=== PATIENT | female | born 1940 | race African-American/Black ===

== ENCOUNTER 2018-08-10 15:53 | Emergency (ER) | payer MEDICARE, OTHER ==
[~2018-08-10 15:53] MED LIST: ISOVUE-370 76%-LOCM 1 ML ONE
[2018-08-10 16:55] LABS: #Basophils 0.1 thou/uL (0.0-0.2); #Eosinphils 0.1 thou/uL (0.0-0.7); #Lymphocytes 2.2 thou/uL (1.20-3.40); #Monocytes 0.6 thou/uL (0.11-0.59); #Neutrophils 5.7 thou/uL (1.40-6.50); %Basophils 0.9 % (0.0-1.0); %Eosinophils 0.6 % (0.0-10.0); %Monocytes 7.3 % (0.0-10.0); %Neutrophils 66.2 % (42.0-75.0); Hemoglobin 11.8 g/dL (12.0-16.0); Mean Corpuscular HGB CONC 32.7 g/dL (32.0-36.0); Mean Corpuscular Hemoglobin 29.1 pg (27.0-31.0); Mean Corpuscular Volume 89.2 fL (78.0-98.0); Mean Platelet Volume 8.6 fL (7.4-10.4); Platelet Count 268 thou/uL (130-400); RBC Distribution Width 12.7 % (11.5-14.5); Red Blood Cell (RBC) Count 4.07 mill/uL (4.20-5.40); White Blood Cell (WBC) Count 8.6 thou/uL (4.8-10.8)
--- NOTE | 2018-08-10 17:07 | RAD ---
AP VIEW CHEST: 08/10/2018 HISTORY: Syncope. Weakness. Dizziness. FINDINGS: The lungs are well aerated. No evidence of active intrathoracic disease is seen. No evidence of eff usions, pneumonia, or pneumothorax is seen. IMPRESSION: Unremarkable anterior-posterior view chest. POS: [facility]
[2018-08-10 17:18] LABS: ALT (SGPT) 13 U/L (8-55); AST (SGOT) 19 U/L (5-34); Albumin 4.6 g/dL (3.4-4.8); Alkaline Phosphatase 66 U/L (40-150); Anion Gap 17 mmol/L (10-20); BUN (Urea Nitrogen) 24 mg/dL (9.8-20.1); Bilirubin, Total 0.4 mg/dL (0.2-1.2); CK (CPK) 261 U/L (29-168); Calc. Creatinine Clearance 0 mL/min (70-130); Calcium 10.7 mg/dL (7.8-10.44); Carbon Dioxide 21 mmol/L (23-31); Chloride 102 mmol/L (98-107); Estimated GFR-MDRD 62; Globulin 3.6 g/dL (2.4-3.5); Glucose 148 mg/dL (83-110); Lipase 51 U/L (8-78); Magnesium 1.4 mg/dL (1.6-2.6); Potassium 4.4 mmol/L (3.5-5.1); Protein, Total 8.2 g/dL (6.0-8.3); Sodium 136 mmol/L (136-145)
[2018-08-10 17:34] LABS: Bilirubin Negative (Negative); Blood, Urine Negative (Negative); Clarity CLEAR (Clear); Glucose, Urine (Dipstick) Negative (Negative); Leukocyte Negative (Negative); Nitrite Negative (Negative); Protein, Urine (Dipstick) Trace mg/dL (Neg-Trace); Specific Gravity, Urine 1.004 (1.002-1.036); Urobilinogen 0.2 mg/dL (0.2-1.0); pH, Urine 7.5 (5.0-9.0)
--- NOTE | 2018-08-10 18:21 | CT ---
CONTRAST ENHANCED CTA CHEST: HISTORY: Severe weakness. Hypertension. TECHNIQUE: A contrast enhanced CTA of the chest is performed, and 2D and 3D reconstructed images are performed o n an independent 3D work station. FINDINGS: Coronary artery calcifications are seen. The aorta, in the ascending portion, demonstrates some diffuse dilatation, measuring up to 4 cm in th e ascending aorta. The aortic arch and descending aspects are unremarkable. Calcification is seen i n the descending thoracic aorta. No definite evidence of filling defect seen in the pulmonary arteries to suggest pulmonary emboli. No evidence of mediastinal pathology is seen. A large amount of stool is seen in the colon, compatible with severe constipation. IMPRESSION: Unremarkable computed tomography angiography chest. POS: [facility]
== END 2018-08-10 19:04 | disposition home or self-care (01) ==
LOC: ERS 15:53
DX: I71.2 Thoracic aortic aneurysm, without rupture (principal); R53.1 Weakness; T46.5X5A Adverse effect of other antihypertensive drugs, initial encounter; E86.0 Dehydration; I25.10 Atherosclerotic heart disease of native coronary artery without angina pectoris; E11.9 Type 2 diabetes mellitus without complications; E78.5 Hyperlipidemia, unspecified; I11.0 Hypertensive heart disease with heart failure; I50.9 Heart failure, unspecified; J44.9 Chronic obstructive pulmonary disease, unspecified; Z86.73 Personal history of transient ischemic attack (TIA), and cerebral infarction without residual deficits; Z79.82 Long term (current) use of aspirin; Z79.899 Other long term (current) drug therapy; Z79.84 Long term (current) use of oral hypoglycemic drugs
CPT/HCPCS: 36415; 71045; 71275; 80053; 81003; 82550; 83605; 83690; 83735; 83880; 84484; 85025; 85379; 87040; 87086; 87804; 93005; 96360; 96361; Q9966

== ENCOUNTER 2018-08-21 13:04 | Outpatient (CLI) | payer MEDICARE, OTHER ==
--- NOTE | 2018-08-21 14:44 | BD ---
DEXA BONE DENSITY STUDY: HISTORY: Asymptomatic menopausal state. FINDINGS: Lumbar Spine: BMD (g/cm2) L1 1.155 T-Score: +1.5 L2 1.274 T-Score: +2.2 L3 1.389 T-Score: +2.8 L4 1.342 T-Score: +2.6 L1-L4 1.300 T-Score: 2.4 Within normal limits with no increased risk for fracture. Femoral Neck: 0.944 T-Score: +0.9 Total Femur: 1.162 T-Score: +1.8 Within normal limits with no increased risk for fracture. FRAX score not given because all T-scores are at or above -1.0. POS: [facility]
== END 2018-08-21 13:05 | disposition home or self-care (01) ==
LOC: BICMAMMO 13:04
PROVIDERS: ATTEND Family Medicine
DX: Z13.820 Encounter for screening for osteoporosis (principal); Z78.0 Asymptomatic menopausal state
CPT/HCPCS: 77080

== ENCOUNTER 2020-01-12 10:46 | Emergency (ER) | payer MEDICARE, OTHER ==
--- NOTE | 2020-01-12 11:10 | RAD ---
Portable chest: HISTORY: Dyspnea COMPARISON: 08/10/2018 FINDINGS: Lung bender are clear. Heart and mediastinum appear unremarkable. Vascularity is normal. Visualized osseous structures unremarkable. IMPRESSION: No acute finding
[2020-01-12 12:01] LABS: #Monocytes 0.5 thou/uL (0.11-0.59); #Neutrophils 5.1 thou/uL (1.40-6.50); %Basophils 0.3 % (0.0-1.0); %Eosinophils 0.6 % (0.0-10.0); %Lymphocytes 26.1 % (21.0-51.0); %Monocytes 6.7 % (0.0-10.0); %Neutrophils 66.3 % (42.0-75.0); Hemoglobin 11.7 g/dL (12.0-16.0); Mean Corpuscular HGB CONC 33.1 g/dL (32.0-36.0); Mean Corpuscular Hemoglobin 30.4 pg (27.0-31.0); Mean Corpuscular Volume 92.1 fL (78.0-98.0); Mean Platelet Volume 8.3 fL (7.4-10.4); Platelet Count 272 thou/uL (130-400); RBC Distribution Width 12.1 % (11.5-14.5); Red Blood Cell (RBC) Count 3.83 mill/uL (4.20-5.40); White Blood Cell (WBC) Count 7.6 thou/uL (4.8-10.8)
[2020-01-12 12:22] LABS: ALT (SGPT) 19 U/L (8-55); AST (SGOT) 22 U/L (5-34); Albumin 4.4 g/dL (3.4-4.8); Alkaline Phosphatase 71 U/L (40-110); Anion Gap 13 mmol/L (10-20); BUN (Urea Nitrogen) 32 mg/dL (9.8-20.1); Bilirubin, Total 0.4 mg/dL (0.2-1.2); Calc. Creatinine Clearance 0 mL/min (70-130); Calcium 9.9 mg/dL (7.8-10.44); Carbon Dioxide 26 mmol/L (23-31); Chloride 101 mmol/L (98-107); Estimated GFR-MDRD 46; Globulin 3.1 g/dL (2.4-3.5); Glucose 160 mg/dL (83-110); Potassium 4.4 mmol/L (3.5-5.1); Protein, Total 7.5 g/dL (6.0-8.3); Sodium 136 mmol/L (136-145)
[2020-01-12 13:07] LABS: Bacteria/HPF 4+ HPF (None Seen); Bilirubin Negative (Negative); Blood, Urine Negative (Negative); Clarity Clear (Clear); Glucose, Urine (Dipstick) Normal (Negative); Ketone, Urine Negative (Negative); Leukocyte 25 Leu/uL (Negative); Nitrite Negative (Negative); Protein, Urine (Dipstick) 20 mg/dL (Neg-Trace); RBC/HPF 0-3 HPF (0-3); Specific Gravity, Urine 1.013 (1.002-1.036); Squamous Epithelial 0-3 HPF (0-3); Urobilinogen Normal mg/dL (Less than 2); WBC/HPF 0-3 HPF (0-3); pH, Urine 6.5 (5.0-9.0)
== END 2020-01-12 14:00 | disposition home or self-care (01) ==
LOC: ERS 10:46
DX: E86.0 Dehydration (principal); R55 Syncope and collapse; N39.0 Urinary tract infection, site not specified; E11.9 Type 2 diabetes mellitus without complications; I10 Essential (primary) hypertension; J44.9 Chronic obstructive pulmonary disease, unspecified; E78.00 Pure hypercholesterolemia, unspecified; Z86.73 Personal history of transient ischemic attack (TIA), and cerebral infarction without residual deficits; Z79.899 Other long term (current) drug therapy; Z79.82 Long term (current) use of aspirin; Z79.84 Long term (current) use of oral hypoglycemic drugs
CPT/HCPCS: 36415; 36416; 71045; 80053; 81003; 81015; 84484; 85025; 87086; 93005; 96360; 96361

== ENCOUNTER 2020-10-04 11:08 | Observation (INO) | payer MEDICARE, OTHER ==
[2020-10-04 14:43] LABS: ALT (SGPT) 40 U/L (8-55); AST (SGOT) 35 U/L (5-34); Albumin 4.8 g/dL (3.4-4.8); Alkaline Phosphatase 81 U/L (40-110); Anion Gap 14 mmol/L (10-20); BUN (Urea Nitrogen) 31 mg/dL (9.8-20.1); Bilirubin, Total 0.5 mg/dL (0.2-1.2); Calc. Creatinine Clearance 0 mL/min (70-130); Calcium 11.5 mg/dL (7.8-10.44); Carbon Dioxide 29 mmol/L (23-31); Chloride 99 mmol/L (98-107); Globulin 4.3 g/dL (2.4-3.5); Glucose 109 mg/dL (83-110); Potassium 4.4 mmol/L (3.5-5.1); Protein, Total 9.1 g/dL (5.8-8.1); Sodium 138 mmol/L (136-145); Troponin I 0.035 ng/mL (< 0.028)
[2020-10-04 14:50] LABS: Bacteria/HPF None Seen HPF (None Seen); Bilirubin Negative (Negative); Blood, Urine Negative (Negative); Clarity Clear (Clear); Glucose, Urine (Dipstick) Normal (Negative); Ketone, Urine Negative (Negative); Leukocyte Negative Leu/uL (Negative); Nitrite Negative (Negative); Protein, Urine (Dipstick) 10 mg/dL (Neg-Trace); RBC/HPF 0-3 HPF (0-3); Specific Gravity, Urine 1.009 (1.002-1.036); Squamous Epithelial 0-3 HPF (0-3); Urobilinogen Normal mg/dL (Less than 2); WBC/HPF 0-3 HPF (0-3); pH, Urine 7.5 (5.0-9.0)
[2020-10-04 15:11] LABS: #Lymphocytes 2.2 thou/uL (1.20-3.40); #Monocytes 0.5 thou/uL (0.11-0.59); #Neutrophils 4.9 thou/uL (1.40-6.50); %Basophils 0.4 % (0.0-1.0); %Eosinophils 0.1 % (0.0-10.0); %Lymphocytes 28.7 % (21.0-51.0); %Monocytes 6.2 % (0.0-10.0); %Neutrophils 64.6 % (42.0-75.0); Hemoglobin 13.2 g/dL (12.0-16.0); Mean Corpuscular HGB CONC 33.2 g/dL (32.0-36.0); Mean Corpuscular Hemoglobin 30.1 pg (27.0-31.0); Mean Corpuscular Volume 90.5 fL (78.0-98.0); Mean Platelet Volume 8.8 fL (7.4-10.4); Platelet Count 269 thou/uL (130-400); RBC Distribution Width 12.2 % (11.5-14.5); Red Blood Cell (RBC) Count 4.41 mill/uL (4.20-5.40); White Blood Cell (WBC) Count 7.6 thou/uL (4.8-10.8)
[2020-10-04] MEDS ORDERED: Aspirin Chewable 81 MG TAB ONE (15:48)
[2020-10-04] MEDS ORDERED: Ondansetron PF 4 MG/2 ML Vial IVP PRN (15:51)
[2020-10-04] MEDS ORDERED: Acetaminophen 325 MG TAB PO PRN (15:51)
[2020-10-04] MEDS ORDERED: Acetaminophen 650 MG Suppository PR PRN (15:51)
[2020-10-04] MEDS ORDERED: Ondansetron ODT 4 MG TAB PO PRN (15:51)
[2020-10-04] MEDS ORDERED: Dextrose 50% Abboject 50 ML SYRINGE SLOW IVP PRN (15:54)
[2020-10-04] MEDS ORDERED: Insulin Regular 300 UNITS/3 ML VIAL SC PRN (15:54)
[2020-10-04] MEDS ORDERED: Dextrose 5% in Water 1,000 ML IV PRN (15:54)
[2020-10-04 17:28] VITALS: BMI 29.9
[2020-10-04] MEDS: Sodium Chloride 0.9% 1,000 ML IV SCH (18:05)
[2020-10-04 18:22] LABS: Troponin I 0.032 ng/mL (< 0.028)
[2020-10-05] MEDS ORDERED: Calcium Carbonate 500 MG ChewTAB PO PRN (04:35)
[2020-10-05 05:26] LABS: #Eosinphils 0.1 thou/uL (0.0-0.7); #Lymphocytes 2.9 thou/uL (1.20-3.40); #Monocytes 0.5 thou/uL (0.11-0.59); #Neutrophils 3.4 thou/uL (1.40-6.50); %Basophils 0.3 % (0.0-1.0); %Eosinophils 1.1 % (0.0-10.0); %Lymphocytes 42.1 % (21.0-51.0); %Monocytes 7.4 % (0.0-10.0); %Neutrophils 49.1 % (42.0-75.0); Hemoglobin 11.1 g/dL (12.0-16.0); Mean Corpuscular HGB CONC 31.7 g/dL (32.0-36.0); Mean Corpuscular Hemoglobin 28.9 pg (27.0-31.0); Mean Corpuscular Volume 91.2 fL (78.0-98.0); Mean Platelet Volume 8.7 fL (7.4-10.4); Platelet Count 239 thou/uL (130-400); RBC Distribution Width 12.3 % (11.5-14.5); Red Blood Cell (RBC) Count 3.85 mill/uL (4.20-5.40); White Blood Cell (WBC) Count 6.9 thou/uL (4.8-10.8)
[2020-10-05 05:43] LABS: Anion Gap 13 mmol/L (10-20); BUN (Urea Nitrogen) 26 mg/dL (9.8-20.1); Calc. Creatinine Clearance 58 mL/min (70-130); Calcium 9.6 mg/dL (7.8-10.44); Carbon Dioxide 26 mmol/L (23-31); Chloride 104 mmol/L (98-107); Glucose 107 mg/dL (83-110); Potassium 4.2 mmol/L (3.5-5.1); Sodium 139 mmol/L (136-145)
[2020-10-05 10:25] LABS: SARS-CoV-2 PCR NAA for Saliva Not Detected (NotDetected)
[2020-10-05] MEDS: Sodium Chloride 0.9% 1,000 ML IV SCH (12:55)
[2020-10-05 16:09] VITALS: BP 150/69; TEMP 97.1
== END 2020-10-05 19:00 | disposition home or self-care (01) ==
LOC: ERS 11:08 → 2SW 16:05
PROVIDERS: ADMIT Internal Medicine; ATTEND Internal Medicine
DX: R55 Syncope and collapse (principal); R77.8 Other specified abnormalities of plasma proteins; I11.0 Hypertensive heart disease with heart failure; I50.9 Heart failure, unspecified; I25.10 Atherosclerotic heart disease of native coronary artery without angina pectoris; E11.9 Type 2 diabetes mellitus without complications; Z79.4 Long term (current) use of insulin; Z79.82 Long term (current) use of aspirin; Z79.899 Other long term (current) drug therapy; Z86.73 Personal history of transient ischemic attack (TIA), and cerebral infarction without residual deficits; Z88.2 Allergy status to sulfonamides; Z20.822 Contact with and (suspected) exposure to COVID-19
CPT/HCPCS: 71045; 80048; 81001; 82962 ×2; 83735; 84484 ×2; 85025; 93306; 99285; G0378 ×3; U0003; U0005; 36415; 36416; 80053; 84443; 87635

== ENCOUNTER 2020-11-22 10:21 | Outpatient (CLI) | payer MEDICARE, OTHER | END 2020-11-22 10:22 | disposition home or self-care (01) | LOC: NM 10:21 | PROVIDERS: ATTEND Internal Medicine Nephrology | DX: E21.0 Primary hyperparathyroidism (principal) | CPT/HCPCS: 78072; A9500 ==

== ENCOUNTER 2021-04-28 18:27 | Observation (INO) | payer MEDICARE, OTHER ==
[2021-04-28] MEDS ORDERED: Nitroglycerin 2% Ointment 1 INCH/1 GM Packet ONE (20:10)
[2021-04-28 20:22] LABS: #Eosinphils 0.1 thou/uL (0.0-0.7); #Lymphocytes 2.2 thou/uL (1.20-3.40); #Monocytes 0.3 thou/uL (0.11-0.59); #Neutrophils 4.5 thou/uL (1.40-6.50); %Basophils 0.5 % (0.0-1.0); %Eosinophils 1.5 % (0.0-10.0); %Lymphocytes 30.8 % (21.0-51.0); %Monocytes 4.6 % (0.0-10.0); %Neutrophils 62.5 % (42.0-75.0); Hemoglobin 11.8 g/dL (12.0-16.0); Mean Corpuscular HGB CONC 32.8 g/dL (32.0-36.0); Mean Corpuscular Hemoglobin 29.9 pg (27.0-31.0); Mean Corpuscular Volume 91.3 fL (78.0-98.0); Mean Platelet Volume 9.2 fL (7.4-10.4); Platelet Count 223 thou/uL (130-400); RBC Distribution Width 11.8 % (11.5-14.5); Red Blood Cell (RBC) Count 3.95 mill/uL (4.20-5.40); White Blood Cell (WBC) Count 7.1 thou/uL (4.8-10.8)
[2021-04-28 20:44] LABS: ALT (SGPT) 28 U/L (8-55); AST (SGOT) 27 U/L (5-34); Alkaline Phosphatase 79 U/L (40-110); Anion Gap 12 mmol/L (10-20); BUN (Urea Nitrogen) 20 mg/dL (9.8-20.1); Bilirubin, Total 0.3 mg/dL (0.2-1.2); Calc. Creatinine Clearance 0 mL/min (70-130); Calcium 9.5 mg/dL (7.8-10.44); Carbon Dioxide 27 mmol/L (23-31); Chloride 103 mmol/L (98-107); Globulin 3.4 g/dL (2.4-3.5); Glucose 206 mg/dL (83-110); Potassium 4.3 mmol/L (3.5-5.1); Protein, Total 7.4 g/dL (5.8-8.1); Sodium 138 mmol/L (136-145)
[2021-04-28 20:46] LABS: Bacteria/HPF None Seen HPF (None Seen); Bilirubin Negative (Negative); Blood, Urine Negative (Negative); Clarity Clear (Clear); Glucose, Urine (Dipstick) Normal (Negative); Ketone, Urine Negative (Negative); Leukocyte Negative Leu/uL (Negative); Nitrite Negative (Negative); Protein, Urine (Dipstick) 70 mg/dL (Neg-Trace); RBC/HPF 0-3 HPF (0-3); Specific Gravity, Urine 1.009 (1.002-1.036); Squamous Epithelial 0-3 HPF (0-3); Urobilinogen Normal mg/dL (Less than 2); WBC/HPF 0-3 HPF (0-3); pH, Urine 6.5 (5.0-9.0)
[2021-04-28 23:45] LABS: Troponin I 0.013 ng/mL (< 0.028)
[2021-04-29] MEDS ORDERED: Ondansetron PF 4 MG/2 ML Vial IVP PRN ×2 (00:04→01:22)
[2021-04-29] MEDS ORDERED: Ondansetron ODT 4 MG TAB PO PRN (00:04)
[2021-04-29] MEDS ORDERED: Acetaminophen 325 MG TAB PO PRN ×2 (00:05→01:22)
[2021-04-29 00:27] VITALS: BMI 29.4
[2021-04-29] MEDS ORDERED: hydrALAZINE 20 MG/ML VIAL SLOW IVP SCH (00:45)
[2021-04-29] MEDS ORDERED: Nitroglycerin 0.4 MG TAB (25 Tab Bottle) SL PRN (01:24)
[2021-04-29] MEDS ORDERED: Dextrose 5% in Water 1,000 ML IV PRN (01:26)
[2021-04-29] MEDS ORDERED: Dextrose 50% Abboject 50 ML SYRINGE SLOW IVP PRN (01:26)
[2021-04-29] MEDS ORDERED: HumaLOG 300 UNITS/3 ML VIAL SC PRN ×2 (01:26)
[2021-04-29 02:38] LABS: Troponin I 0.015 ng/mL (< 0.028)
[2021-04-29 05:35] LABS: #Eosinphils 0.1 thou/uL (0.0-0.7); #Lymphocytes 2.4 thou/uL (1.20-3.40); #Monocytes 0.5 thou/uL (0.11-0.59); #Neutrophils 5.5 thou/uL (1.40-6.50); %Basophils 0.1 % (0.0-1.0); %Lymphocytes 28.5 % (21.0-51.0); %Monocytes 5.9 % (0.0-10.0); %Neutrophils 64.4 % (42.0-75.0); Hemoglobin 11.8 g/dL (12.0-16.0); Mean Corpuscular HGB CONC 32.9 g/dL (32.0-36.0); Mean Corpuscular Hemoglobin 30.2 pg (27.0-31.0); Mean Corpuscular Volume 91.8 fL (78.0-98.0); Mean Platelet Volume 9.6 fL (7.4-10.4); Platelet Count 210 thou/uL (130-400); RBC Distribution Width 11.7 % (11.5-14.5); Red Blood Cell (RBC) Count 3.92 mill/uL (4.20-5.40); White Blood Cell (WBC) Count 8.6 thou/uL (4.8-10.8)
[2021-04-29 05:54] LABS: Anion Gap 13 mmol/L (10-20); BUN (Urea Nitrogen) 17 mg/dL (9.8-20.1); Calc. Creatinine Clearance 67 mL/min (70-130); Calcium 10.3 mg/dL (7.8-10.44); Carbon Dioxide 28 mmol/L (23-31); Chloride 103 mmol/L (98-107); Glucose 122 mg/dL (83-110); Potassium 4.2 mmol/L (3.5-5.1); Sodium 140 mmol/L (136-145)
[2021-04-29] MEDS: Aspirin 325 MG TAB PO SCH (08:00)
[2021-04-29] MEDS: Carvedilol 25 MG TAB PO SCH ×2 (08:01→17:43)
[2021-04-29] MEDS: Enoxaparin Sodium 40 MG/0.4 ML SYRINGE SC SCH (08:03)
[2021-04-29] MEDS ORDERED: Amlodipine 10 MG TAB PO SCH (09:00)
[2021-04-29] MEDS ORDERED: hydrALAZINE 25 MG TAB PO SCH (09:00)
[2021-04-29] MEDS ORDERED: hydrALAZINE 25 MG TAB PO PRN (11:40)
[2021-04-29] MEDS ORDERED: Regadenoson 0.4 MG/5 ML SYRINGE ONE (12:04)
[2021-04-29 16:42] LABS: SARS-CoV-2 PCR by NAA Not Detected (NotDetected)
[2021-04-29] MEDS ORDERED: Rosuvastatin 20 MG TAB PO SCH (21:00)
[2021-04-30 04:41] LABS: #Basophils 0.1 thou/uL (0.0-0.2); #Eosinphils 0.1 thou/uL (0.0-0.7); #Lymphocytes 3.1 thou/uL (1.20-3.40); #Monocytes 0.6 thou/uL (0.11-0.59); #Neutrophils 2.9 thou/uL (1.40-6.50); %Eosinophils 1.3 % (0.0-10.0); %Lymphocytes 46.1 % (21.0-51.0); %Monocytes 8.3 % (0.0-10.0); %Neutrophils 43.3 % (42.0-75.0); Hemoglobin 11.5 g/dL (12.0-16.0); Mean Corpuscular HGB CONC 32.1 g/dL (32.0-36.0); Mean Corpuscular Hemoglobin 29.7 pg (27.0-31.0); Mean Corpuscular Volume 92.4 fL (78.0-98.0); Mean Platelet Volume 9.2 fL (7.4-10.4); Platelet Count 216 thou/uL (130-400); RBC Distribution Width 11.9 % (11.5-14.5); Red Blood Cell (RBC) Count 3.87 mill/uL (4.20-5.40); White Blood Cell (WBC) Count 6.6 thou/uL (4.8-10.8)
[2021-04-30 04:58] LABS: Anion Gap 10 mmol/L (10-20); BUN (Urea Nitrogen) 22 mg/dL (9.8-20.1); Calc. Creatinine Clearance 51 mL/min (70-130); Calcium 9.8 mg/dL (7.8-10.44); Carbon Dioxide 29 mmol/L (23-31); Chloride 101 mmol/L (98-107); Glucose 145 mg/dL (83-110); Potassium 4.6 mmol/L (3.5-5.1); Sodium 135 mmol/L (136-145)
[2021-04-30 08:18] VITALS: BP 140/66; TEMP 98.1
[2021-04-30] MEDS: Aspirin 325 MG TAB PO SCH (08:49)
[2021-04-30] MEDS: Carvedilol 25 MG TAB PO SCH (08:49)
[2021-04-30] MEDS: Enoxaparin Sodium 40 MG/0.4 ML SYRINGE SC SCH (08:50)
[2021-04-30] MEDS ORDERED: Amlodipine 5 MG TAB PO SCH (09:00)
== END 2021-04-30 11:05 | disposition home or self-care (01) ==
LOC: ERS 18:27 → 2SW 21:40
PROVIDERS: ADMIT Internal Medicine; ATTEND Internal Medicine
DX: I16.0 Hypertensive urgency (principal); I11.0 Hypertensive heart disease with heart failure; I50.32 Chronic diastolic (congestive) heart failure; I25.10 Atherosclerotic heart disease of native coronary artery without angina pectoris; J44.9 Chronic obstructive pulmonary disease, unspecified; E11.9 Type 2 diabetes mellitus without complications; D64.89 Other specified anemias; Z20.822 Contact with and (suspected) exposure to COVID-19; Z79.82 Long term (current) use of aspirin; Z79.899 Other long term (current) drug therapy; Z88.2 Allergy status to sulfonamides; Z86.73 Personal history of transient ischemic attack (TIA), and cerebral infarction without residual deficits; Z90.710 Acquired absence of both cervix and uterus; Z98.890 Other specified postprocedural states; Z95.5 Presence of coronary angioplasty implant and graft
CPT/HCPCS: 71045; 78452; 80048 ×2; 80053; 82962; 84484 ×3; 85025 ×3; 93005; 93017; 99285; A9500; U0003; U0005; 36415; 36416; 81003; 81015; 96372; 96374; G0378; J0360; J1650; J2785

== ENCOUNTER 2023-04-08 12:43 | Outpatient (CLI) | payer OTHER | END 2023-04-08 12:44 | disposition home or self-care (01) | LOC: BICRAD 12:43 | PROVIDERS: ATTEND Family Medicine | DX: M79.662 Pain in left lower leg (principal); M47.816 Spondylosis without myelopathy or radiculopathy, lumbar region; M51.36 Other intervertebral disc degeneration, lumbar region | CPT/HCPCS: 72100 ==

== ENCOUNTER 2025-05-27 08:01 | Emergency (ER) | payer OTHER ==
[2025-05-27] MEDS ORDERED: cloNIDine 0.1 MG TAB ONE (09:59)
[2025-05-27 10:13] LABS: #Basophils 0.03 10x3/uL (0.0-0.2); #Eosinophils 0.06 10x3/uL (0.0-0.7); #Monocytes 0.42 10x3/uL (0.11-0.59); #Neutrophils 3.94 10x3/uL (1.40-6.50); %Basophils 0.5 % (0.0-1.0); %Eosinophils 0.9 % (0.0-10.0); %Lymphocytes 31.8 % (21.0-51.0); %Monocytes 6.4 % (0.0-10.0); %Neutrophils 60.2 % (42.0-75.0); Hematocrit 33.7 % (36.0-47.0); Hemoglobin 10.9 g/dL (12.0-16.0); Mean Corpuscular Hemoglobin 28.9 pg (27.0-31.0); Mean Corpuscular Volume 89.4 fL (78.0-98.0); Platelet Count 257 10x3/uL (130-400); Red Blood Cell (RBC) Count 3.77 mill/uL (4.20-5.40); White Blood Cell (WBC) Count 6.54 10x3/uL (4.8-10.8)
[2025-05-27 10:28] LABS: ALT (SGPT) 15 U/L (Less than 34); AST (SGOT) 25 U/L (11-34); Albumin 4.0 g/dL (3.1-4.5); Alkaline Phosphatase 45 U/L (40-110); Anion Gap 16 mmol/L (10-20); BUN (Urea Nitrogen) 28 mg/dL (9.8-20.1); Bilirubin, Total 0.3 mg/dL (0.3-1.2); Calc. Creatinine Clearance 0 mL/min (70-130); Calcium 10.0 mg/dL (7.8-10.44); Carbon Dioxide 23 mmol/L (23-31); Chloride 104 mmol/L (98-107); Globulin 3.6 g/dL (2.4-3.5); Glucose 80 mg/dL (83-110); Potassium 4.2 mmol/L (3.5-5.1); Sodium 139 mmol/L (136-145)
[2025-05-27] MEDS ORDERED: Ketorolac Tromethamine 30 MG (1 mL) VIAL ONE (10:55)
== END 2025-05-27 13:35 | disposition home or self-care (01) ==
LOC: ERS 08:01
DX: L02.11 Cutaneous abscess of neck (principal); E11.649 Type 2 diabetes mellitus with hypoglycemia without coma; I11.0 Hypertensive heart disease with heart failure; I50.9 Heart failure, unspecified; J45.909 Unspecified asthma, uncomplicated; Z79.899 Other long term (current) drug therapy; Z55.6 Problems related to health literacy; Z79.82 Long term (current) use of aspirin; Z79.51 Long term (current) use of inhaled steroids
CPT/HCPCS: 36415; 70491; 80053; 83605; 85025; 86141; 96374; J1885